=== PATIENT | male | born 1970 | race Caucasian/White ===

== ENCOUNTER → 2023-08-31 09:51 | Outpatient (BNVA) | payer OTHER, MEDICAID, SELFPAY | PROVIDERS: Visit Provider Student in an Organized Health Care Education/Training Program | DX: M65.341 Trigger finger, right ring finger (principal); M72.0 Palmar fascial fibromatosis [Dupuytren] | CPT/HCPCS: 99202 ==

== ENCOUNTER 2023-09-13 08:16 | Day surgery (SDC) | payer OTHER, MEDICAID, SELFPAY ==
--- NOTE | 2023-09-13 07:24 | W.PM.DSUDISC ---
Date of service: 09/13/23 Time of Service: 07:25 Discharge Plan Disposition Patient Disposition: Home Condition: Good Discharge Details Reason For Visit: RRF Trigger Release with nodule excision Attending Provider: Dustin Shelley Primary Care Provider: None,None Home Meds and New Rx's Prescriptions: New acetaminophen 500 mg tablet 1,000 mg PO TID Qty: 90 0RF ibuprofen 600 mg tablet 600 mg PO TID PRN (Reason: pain) Qty: 90 0RF Discharge Instructions Stand Alone Forms: Karsten Hayden Finger ReleaseCaterina (DSU) Referrals: Dustin Shelley MD [ [facility] STAFF PHYSICIAN] - 09/22/23 9:15 am Activity:: Activity as Tolerated Remove Dressings/Wound Care:: 48 hours Shower/Bathe:: 48 hours Diet:: As Tolerated Discharge Orders Discharge Orders: Discharge Order (Routine); Ordered 09/13/23 Ordered By: Avinash Diaz DS: Diagnosis Discharge Diagnosis (1) Dupuytren's contracture of right hand: Status: Acute (2) Trigger finger, right ring finger: Status: Acute
[2023-09-13 08:31] VITALS: BP 124/82; PULSE 99; RESP 16; TEMP 36.4; O2SAT 99
[2023-09-13] MEDS: Sodium Bicarbonate 50 MEQ/50 ML VIAL (09:23)
[2023-09-13] MEDS: Lidocaine 1% Multi-Dose W/EPI 1/100,000 50 ML VIAL (09:23)
[2023-09-13 09:40] VITALS: BP 121/78; PULSE 91; RESP 16; TEMP 36.7; O2SAT 97
--- NOTE | 2023-09-13 09:42 | W.PM.OP ---
Date of service: 09/13/23 Time of Service: 09:20 Operative Note Operative Note DATE OF PROCEDURE: 09/13/23 PRE-OP DIAGNOSIS: Right Ring Finger Dupuytren's Nodule and Trigger Finger POST-OP DIAGNOSIS: same PROCEDURE: Partial Palmar Fasciectomy of Dupuytren's Nodule - Palm/Ring Finger Ray Trigger Finger Release - Right Ring Finger SURGEON: Dustin Shelley ANESTHESIA TYPE: Local By Surgeon Refer to Anesthesia Record ESTIMATED BLOOD LOSS: 5 PATHOLOGY: none sent COMPLICATIONS: None Patient was transported to: same day Patient's condition: stable Indications: I have seen Chas in clinic for symptoms of a painful nodule of the palm overlying the ring finger ray with symptoms of a trigger finger. The catching, clicking, locking, and pain limited function. The diagnosis of a Dupuytren's nodule as well as a trigger finger was evident. The symptoms had not responded to conservative measures. I discussed surgery with him. I reviewed the risks of the procedure to include, but not limited to, bleeding, infection, pain, stiffness, incomplete release, damage to nerves or vessels, continued catching, recurrence. Despite these risks, the patient elected to proceed. Findings: There was a nodule associated with the palmar fascia and the dermis which was consistent with a Dupuytren's nodule. This was resected. The A1 bud was also released with no difficulty. Procedure Description: Chas was greeted in the preoperative holding area where the correct side was identified and marked. The consent was reviewed with the patient and signed. All questions were answered. He was taken back to the operating room. The patient was placed into the supine position on the operating room table with the right arm on an arm board. All bony prominences were well padded. No prophylactic antibiotics were administered since this was a clean, elective hand surgical case. The right arm was then prepped with Chloraprep and draped in a standard fashion with stockinette and extremity drape. A timeout to confirm correct identity, side and site, procedure, allergies, anesthesia, and medical concerns was performed. The surgical site was marked as a Dana type incision over the distal flexion creases encompassing the A1 bud of the involved digit and the Dupuytren's nodule. This area was then anesthetized with 1% Lidocaine with Epinephrine and buffered with sodium bicarbonate. The patient tolerated this well and once the anesthetic had setup, the procedure began. The incision was made through skin only, approximately 2cm. The deep tissues were dissected bluntly. The nodule was easily identified adjacent and adherent to the dermis of the skin. It was also connected to the strands of palmar fascia. There is no associated cord that I could appreciate. The nodules in released from surrounding fascial attachments and the overlying dermis and removed in whole. The wound bed was once again inspected for any signs of a Dupuytren's contracture and cord and none was identified. Then, the A1 bud and flexor tendons were identified and the soft tissues including neurovascular structures were retracted medially and laterally. There were no crossing structures over the A1 bud. The proximal edge of the bud was identified and the bud was incised with tenotomy scissors. There was a release of the tendons once this was fully released. The hand was then once more inspected for any A0 bud or area of possible constriction. The wound was then irrigated and the skin was closed with a 4-0 Nylon. This was dressed with gauze and a Conform dressing. The patient tolerated the procedure well and was returned to the Same Day Surgery area in a stable condition suffering no known complication.
== END 2023-09-13 10:08 | disposition home or self-care (01) ==
PROVIDERS: Visit Provider Student in an Organized Health Care Education/Training Program
PROC: (CPT 26160; principal; 2023-09-13 09:45)
PROC: (CPT 26055; 2023-09-13 09:45)
DX: M72.0 Palmar fascial fibromatosis [Dupuytren] (principal); M65.341 Trigger finger, right ring finger
CPT/HCPCS: 26055; 26040; J2004

== ENCOUNTER → 2023-09-22 09:05 | Outpatient (BNVA) | payer OTHER, MEDICAID, SELFPAY | PROVIDERS: Visit Provider Physician Assistant | DX: Z47.89 Encounter for other orthopedic aftercare (principal); M25.641 Stiffness of right hand, not elsewhere classified ==